=== PATIENT | female | born 1990 | race Caucasian/White ===

== ENCOUNTER 2016-12-22 07:34 | Emergency (ER) | payer OTHER ==
[2016-12-22 07:49] LABS: BILIRUBIN NEGATIVE (NEGATIVE); BLOOD 1+ Ery/uL (NEGATIVE); CLARITY CLEAR (CLEAR); COLOR YELLOW (YELLOW); GLUCOSE (U) NORMAL (NORMAL); KETONE (U) TRACE mg/dL (NEGATIVE); LEUKOCYTES 1+ Leu/uL (NEGATIVE); NITRITE NEGATIVE (NEGATIVE); PROTEIN NEGATIVE (NEGATIVE); SPECIFIC GRAVITY 1.025 (1.001-1.030); UROBILINOGEN 0.2 mg/dL (0.2-1.0)
[2016-12-22 07:53] LABS: BASOPHIL 0.2 % (0-2); EOSINOPHIL 0 % (0-5); HCT 42.7 % (37.0-47.0); HGB 14.4 g/dl (12.5-16.0); MCH 30.4 pg (25.0-31.0); MCHC 33.7 g/dL (32.0-36.0); MCV 90.1 fL (78.0-100.0); MONOCYTE 5.5 % (0-12); MPV 9.6 fL (6.0-9.5); NEUTROPHIL 78.3 % (41-80); PLT 344 K/uL (150-400); RBC 4.74 M/uL (4.20-5.40); RDW 12.3 % (11.5-14.0); WBC 12.1 K/uL (4.0-10.5)
[2016-12-22 07:57] LABS: URINARY WBC 20-50
[2016-12-22 08:01] LABS: BACTERIA 2+; SQUAMOUS EPITHELIAL CELLS 20-50
[2016-12-22 08:14] LABS: ALBUMIN 4.7 g/dL (3.5-5.0); BILIRUBIN - TOTAL 0.3 mg/dL (0.1-1.0); CREATININE 0.7 mg/dL (0.5-1.0); GLOBULIN (CALCULATION) 2.9 g/dL (2.2-4.2); POTASSIUM 4.2 mmol/L (3.5-5.1); TOTAL PROTEIN 7.6 g/dL (6.4-8.3)
[2016-12-26] MEDS ORDERED: ACYCLOVIR SODI500 MG IV (17:02)
[2016-12-26] MEDS ORDERED: NORCO 5-325 TA1 EACH PO (17:03)
[2016-12-26] MEDS ORDERED: ROCEPHIN 22 GM/50 ML IV (17:03)
== END 2016-12-22 10:08 | disposition home or self-care (01) ==
LOC: FER 07:34
PROVIDERS: Emergency Medicine
DX: B34.9 Viral infection, unspecified (principal); N39.0 Urinary tract infection, site not specified; M54.2 Cervicalgia
CPT/HCPCS: 36415; 70450; 80053; 81001; 85025; 87040; J1885; J2405